=== PATIENT | female | born 1990 | race Hispanic/Latino ===

== ENCOUNTER 2017-03-31 03:31 | Inpatient (IN) | payer MEDICAID, OTHER, SELFPAY ==
[2017-03-31 04:04] VITALS: BMI 34.4
[2017-03-31] MEDS: Lactated Ringer's 1,000 ML IV SCH ×2 (04:28→06:48)
[2017-03-31] MEDS ORDERED: Ondansetron HCl/PF 4 MG/2 ML Vial IVP PRN ×2 (04:38→06:20)
[2017-03-31] MEDS ORDERED: Acetaminophen 500 MG TAB PO PRN (04:38)
[2017-03-31] MEDS ORDERED: Promethazine HCl 25 MG/ML VIAL IM PRN ×2 (04:38→06:20)
[2017-03-31] MEDS ORDERED: Fentanyl 4 mcg/Marc 0.1% Cadd 100 ML ONE (04:41)
[2017-03-31 04:59] LABS: Hematocrit 40.5 % (36.0-47.0); Mean Platelet Volume 8.5 fL (7.4-10.4); Red Blood Cell (RBC) Count 4.78 mill/uL (4.20-5.40); White Blood Cell (WBC) Count 9.9 thou/uL (4.8-10.8)
[2017-03-31] MEDS ORDERED: Fentanyl 100 MCG/2 ML VIAL ONE (05:48)
--- NOTE | 2017-03-31 06:06 | PDOC.LDHP ---
Labor and Delivery H&P Chief complaint: contractions, other (spotting after wiping) Current gestational age (weeks): 39 (4 days) Due date: 04/03/17 Dating criteria: last menstrual period Grav: 3 Para: 2 OB History Details: Prior w/ PPH followed by delivery Current complications: other (Dizziness, Headaches) Abnormal US findings: No Past Medical History: None Current medications: pre-yaritza vitamins Previous surgical history: low tranverse CS Social history: none - Physical Exam Vital signs reviewed and normal: yes General: NAD, resting Heart: RRR Lungs: nonlabored breathing Abdomen: NTTP Extremeties: no edema FHT: category 1, variability present [place] contractions every: 4 - Vaginal Exam cm dilated: 6 Effacement: 100% Station: -2 - OB Labs Blood type: O RH: positive HIV: negative RPR: negative HEPSAg: negative 1 hour GCT: negative GBS: negative Urine drug screen: negative - Assessment L&D Assessment: term patient in labor -plan for repeat - Plan Plan: admit to L&D, labor augmentation if indicated, anesthesia consult for pain management -: -Will admit as patient presents in labor. Plan for repeat . -Baby presents vertex -FHT 130 w/ category 1 strip. Contractions every 4 mins. -Will start LR@120 mls/hr -Will check routine L&D admission labs -Will continue to assess change with vaginal exams. Will monitor vital signs and treat pain PRN <Cuba Wiggins - Last Filed: 03/31/17 06:04> <Candelario Rayo - Last Filed: 03/31/17 07:28> Allergies/Adverse Reactions: Allergies Allergy/AdvReac Type Severity Reaction Status Date / Time No Known Allergies Allergy Unverified 03/31/17 03:55 Attending Addendum - Attending Addendum I personally evaluated the patient and discussed the management with Dr. Wiggins. I agree with the History, Examination, Assessment and Plan documented above with any addition or exceptions noted below. patien si good candidate and in active labor. Cat 1 FHT tracing. Epidural placed. CFM in place. I have also discussed her case with the OB hospitalist in case there is need of assistance. <Candelario Rayo - Last Filed: 03/31/17 07:28>
[2017-03-31] MEDS ORDERED: Lactated Ringer's 500 ML IV PRN (06:20)
[2017-03-31] MEDS ORDERED: Eucerin (Mineral Oil/Petrolatum,White) 30 gm Jar TOP PRN (06:20)
[2017-03-31] MEDS ORDERED: ePHEDrine/0.9% NaCl/PF SYRINGE 50 mg/10 ml SLOW IVP PRN (06:20)
[2017-03-31] MEDS ORDERED: diphenhydrAMINE 50 MG/ML VIAL IVP PRN (06:20)
[2017-03-31] MEDS ORDERED: Naloxone HCl 0.4 mg/ml Vial IVP PRN ×2 (06:20)
[2017-03-31] MEDS ORDERED: Communication Order-Pharmacy FS SCH (06:30)
[2017-03-31] MEDS ORDERED: Fentanyl 4mcg/Marcaine 0.1% Cassette 100 ML EPIDURAL SCH (06:30)
[2017-03-31] MEDS: Acetaminophen 325 MG TAB PO PRN ×3 (07:24→21:48)
--- NOTE | 2017-03-31 07:40 | PDOC.LDPN ---
Labor & Delivery Progress Note - Subjective Subjective: comfortable, other (Good pain control. Epidural in place) - Objective Vital signs reviewed and normal: yes General: NAD, resting Uterine fundus: non tender SVE: 6:00 Dilation: 7.5 Effacement: 100% Station: -2 FHT: category 1, variability present [place] contractions every: 4 - Assessment (1) Desires (vaginal after ) trial Code(s): O34.219 - MATERNAL CARE FOR UNSP TYPE SCAR FROM PREVIOUS DEL Current Visit: Yes Status: Acute (2) Intrauterine Code(s): Z34.90 - ENCNTR FOR SUPRVSN OF NORMAL , UNSP, UNSP TRIMESTER Current Visit: Yes Status: Acute Plan: continue plan of care -: Will continue to monitor vital signs FHR baseline 130. Category 1 strip -Will check SVE every 2 hours -Pt making progress on own. Will continue with labor -Epidural placed. Good pain control obtained.
--- NOTE | 2017-03-31 08:41 | PDOC.LDPN ---
Labor & Delivery Progress Note - Subjective Subjective: comfortable (Epidural inplace. POWELL resolved, dizziness resolved.) - Objective Vital signs reviewed and normal: yes General: NAD, resting, breathing through contractions Uterine fundus: non tender SVE: Per Nurse Dilation: 7.5 Effacement: 100% Station: -2 FHT: category 1 [place] contractions every: Q3min Other exam findings: Intact - Assessment (1) Desires (vaginal after ) trial Code(s): O34.219 - MATERNAL CARE FOR UNSP TYPE SCAR FROM PREVIOUS DEL Current Visit: Yes Status: Acute Comment: Continue routine L&D care. Patient comfortable with epidural. Recheck Q2hrs. GBS negative. Did well after last . Cat I strip currently after changing positions, and bolus fluid. (2) Intrauterine Code(s): Z34.90 - ENCNTR FOR SUPRVSN OF NORMAL , UNSP, UNSP TRIMESTER Current Visit: Yes Status: Acute Comment: Continue Routine L&D Care. Plan: continue plan of care
[2017-03-31] MEDS ORDERED: LR / Pitocin 40 units/1000 ml 1,000 ML ONE (09:27)
--- NOTE | 2017-03-31 09:56 | PDOC.LDPN ---
Labor & Delivery Progress Note - Objective Vital signs reviewed and normal: yes General: NAD SVE: 9/C/0 FHT: category 1 [place] contractions every: 2-3 minutes AROM: clear fluid - Assessment (1) Intrauterine Code(s): Z34.90 - ENCNTR FOR SUPRVSN OF NORMAL , UNSP, UNSP TRIMESTER Current Visit: Yes Status: Acute Comment: Progressing well. AROM clear fluid. Continue expectant management.
--- NOTE | 2017-03-31 10:35 | PDOC.LDPN ---
Labor & Delivery Progress Note - Subjective Subjective: comfortable, vaginal pressure - Objective Vital signs reviewed and normal: yes General: NAD Dilation: AL Effacement: 100% Station: 1+ FHT: category 2, early decelerations [place] contractions every: 2-3 minutes - Assessment (1) Intrauterine Code(s): Z34.90 - ENCNTR FOR SUPRVSN OF NORMAL , UNSP, UNSP TRIMESTER Current Visit: Yes Status: Acute Comment: Minimal variability currently but has had periods with moderate variability on FHTs. Overall reassuring. Position changed. Attempted pushing but unable to reduce anterior lip. Continue to labor down.
[2017-03-31] MEDS ORDERED: Misoprostol 200 MCG TAB ONE (11:09)
[2017-03-31] MEDS ORDERED: Lidocaine 1% (PF) 30 ML VIAL ONE (11:11)
[2017-03-31] MEDS ORDERED: Misoprostol 200 MCG TAB PR PRN (11:14)
[2017-03-31] MEDS ORDERED: Lidocaine 1% (PF) 30 ML VIAL SC PRN (11:14)
[2017-03-31] MEDS ORDERED: LR / Pitocin 40 units/1000 ml 1,000 ML IV PRN (11:14)
--- NOTE | 2017-03-31 11:35 | PDOC.OPDEL ---
OB Operative/Delivery Note Delivery Dr/Surgeon: Sal Pre-Delivery Diagnosis: active labor Procedure/Post Delivery Dx: vaginal delivery after CS Anesthesia: epidural - Additional Findings/Plan Placenta delivered: spontaneous Repaired Obstetrical Laceration: 2nd degree Estimated blood loss: 400 mL Compilations/Other Findings: 26 year old LAF @ 39 4/7 weeks admitted in active labor. H/o LCT C/s with successful in 2nd . After placement of epidural pt progressed to complete and delivered a viable female over an intact perineum. Apgars 9/9/ No nuchal cord. Placenta delivered via [place] mechanism, spontaneously and intact. 3 V cord. Mild uterine atony resolved with bimanual massage. 2nd degree perineal laceration repaired in usual fashion with 2-0 Vicryl. Good hemostasis. EBL 400 mL. and mother in stable condition Post delivery plan: routine recovery
[2017-03-31] MEDS ORDERED: traMADol HCl 50 MG TAB PO PRN (12:21)
[2017-03-31] MEDS ORDERED: Milk Of Magnesia 30 ML UDCUP PO PRN (12:21)
[2017-03-31] MEDS ORDERED: Bisacodyl 10 MG SUPP PR PRN (12:21)
[2017-03-31] MEDS ORDERED: Lanolin Ointment 7 GM TUBE TOP PRN (12:21)
[2017-03-31] MEDS ORDERED: Adacel (T-DAP) 0.5 ML VIAL IM ONE (12:21)
[2017-03-31] MEDS ORDERED: Benzocaine/Menthol 20-0.5% 60 ML CAN TOP PRN (12:21)
[2017-03-31] MEDS ORDERED: LR / Pitocin 40 units/1000 ml 1,000 ML IV SCH (12:21)
[2017-03-31] MEDS: Ibuprofen 800 MG TAB PO SCH ×2 (13:37→21:48)
[2017-03-31] MEDS: Ferrous Sulfate 325 MG TAB PO SCH (18:01)
[2017-03-31] MEDS: Docusate (Surfak) 240 MG CAP PO SCH (21:49)
[2017-04-01] MEDS ORDERED: ePHEDrine/0.9% NaCl/PF SYRINGE 50 mg/10 ml ONE (00:03)
[2017-04-01] MEDS ORDERED: Lidocaine 2% PF 10 ML AMP (For Epidural Use) ONE (00:03)
[2017-04-01] MEDS: Lactated Ringer's 1,000 ML IV SCH ×3 (01:28→22:06)
[2017-04-01] MEDS: Acetaminophen 325 MG TAB PO PRN (01:32)
[2017-04-01] MEDS: Ibuprofen 800 MG TAB PO SCH ×3 (05:58→22:07)
[2017-04-01] MEDS ORDERED: Fioricet 325/50/40 mg Tablet PO PRN (08:50)
[2017-04-01] MEDS: Docusate (Surfak) 240 MG CAP PO SCH ×2 (10:04→22:07)
[2017-04-01] MEDS: Prenatal Vitamin 1 TAB PO SCH (10:04)
[2017-04-01] MEDS ORDERED: HYDROcodone/Acetaminophen 5/325 mg Tablet PO PRN ×2 (10:23)
[2017-04-01] MEDS: Ferrous Sulfate 325 MG TAB PO SCH ×2 (13:23→16:02)
--- NOTE | 2017-04-01 17:42 | PDOC.PP ---
Post Progress Note Post Day #: 1 Subjective: pt c/o positional headache. not helped with po meds thus far. otherwise, able to ambulate, tolerate po. well. PO intake tolerated: yes Flatus: yes Ambulation: yes Vital Signs (12 hours) Temp Pulse Resp BP BP 04/01/17 11:40 98.5 F 60 20 115/62 04/01/17 09:05 97.9 F 67 20 106/59 L Weight Weight 85.275 kg - Physical Examination General: NAD Cardiovascular: no m/r/g, RRR Respiratory: clear to auscultation bilaterally, non-labored breathing Abdominal: + bowel sounds, lochia (minimal lochia rubra), no distention, appropriately TTP Fundus firm & at: umbilicus Extremities: negative homans (B) Skin: no rash Neurological: no gross focal deficits Psychiatric: A&Ox3, normal affect Result Diagrams: 03/31/17 04:33 Additional Labs: Post Labs Blood Type O POSITIVE 03/31/17 04:33 Hep Bs Antigen Non-Reactive S/CO (NonReactive) 03/31/17 04:33 (1) , delivered, current hospitalization Code(s): O34.21 - MATERNAL CARE FOR SCAR FROM PREVIOUS * DO NOT USE * Status: Acute Comment: PPD#1 s/p successful on 03/31 @ 1104. post- course as expected aside from post-spinal headache. undecided regarding contraception. (2) Second degree laceration of perineum, delivered, current hospitalization Code(s): O70.1 - SECOND DEGREE PERINEAL LACERATION DURING DELIVERY Status: Acute (3) Spinal headache complicating labor and delivery, condition Code(s): O74.5 - SPINAL AND EPIDUR ANESTHESIA-INDUCED HDACHE DUR LABR AND DEL Status: Acute Comment: will consult anesthesia to consider blood patch given positional nature of headache and failure of po meds for pain relief. <Martita Nye - Last Filed: 04/01/17 17:40> Vital Signs (12 hours) Temp Pulse Resp BP 04/01/17 20:21 97.8 F 72 18 133/67 Weight Weight 85.275 kg Result Diagrams: 03/31/17 04:33 Additional Labs: Post Labs Blood Type O POSITIVE 03/31/17 04:33 Hep Bs Antigen Non-Reactive S/CO (NonReactive) 03/31/17 04:33 (1) Intrauterine Code(s): Z34.90 - ENCNTR FOR SUPRVSN OF NORMAL , UNSP, UNSP TRIMESTER Status: Acute Comment: Minimal variability currently but has had periods with moderate variability on FHTs. Overall reassuring. Position changed. Attempted pushing but unable to reduce anterior lip. Continue to labor down. <Greta Huang - Last Filed: 04/02/17 07:40> Attending Addendum - Attending Addendum I personally evaluated the patient and discussed the management with Dr. Nye on 04/01/17 I agree with the History, Examination, Assessment and Plan documented above with any addition or exceptions noted below- Patient c/o POWELL. Just came back from getting blood patch. Does report headache is better than earlier. Afebrile VSS A/P: PPD#1 s/p ()- recovering well from delivery. Continue routine care. 2) Spinal POWELL- s/p blood patch- continue to monitor. <Greta Huang - Last Filed: 04/02/17 07:40>
[2017-04-02] MEDS: Lactated Ringer's 1,000 ML IV SCH ×3 (06:16→12:42)
[2017-04-02] MEDS: Ibuprofen 800 MG TAB PO SCH ×2 (06:17→14:27)
[2017-04-02 07:53] VITALS: BP 115/61; TEMP 98.1
[2017-04-02] MEDS: Ferrous Sulfate 325 MG TAB PO SCH (08:25)
[2017-04-02] MEDS: Prenatal Vitamin 1 TAB PO SCH (08:28)
[2017-04-02] MEDS: Docusate (Surfak) 240 MG CAP PO SCH (08:28)
--- NOTE | 2017-04-02 08:39 | PDOC.PP ---
Post Progress Note Post Day #: 2 Subjective: Feeling well this morning. Headache resolved after blood patch per anesthesia. PO intake tolerated: yes Flatus: yes Ambulation: yes Vital Signs (12 hours) Temp Pulse Resp BP 04/02/17 07:52 98.1 F 68 20 115/61 Weight Weight 85.275 kg - Physical Examination General: NAD Cardiovascular: no m/r/g, RRR Respiratory: clear to auscultation bilaterally, non-labored breathing Abdominal: + bowel sounds, lochia (minimal rubra), no distention, appropriately TTP Fundus firm & at: umbilicus Extremities: negative homans (B) Skin: no rash Neurological: no gross focal deficits Psychiatric: A&Ox3, normal affect Result Diagrams: 03/31/17 04:33 Additional Labs: Post Labs Blood Type O POSITIVE 03/31/17 04:33 Hep Bs Antigen Non-Reactive S/CO (NonReactive) 03/31/17 04:33 (1) , delivered, current hospitalization Code(s): O34.21 - MATERNAL CARE FOR SCAR FROM PREVIOUS * DO NOT USE * Status: Acute Comment: ->3 PPD#2 s/p successful on 03/31 @ 1104. post- course as expected, undecided regarding contraception. Desiring to go home today with f/u outpt with Dr. Huang. post-spinal headache resolved s/p blood patch (2) Second degree laceration of perineum, delivered, current hospitalization Code(s): O70.1 - SECOND DEGREE PERINEAL LACERATION DURING DELIVERY Status: Acute (3) Spinal headache complicating labor and delivery, condition Code(s): O74.5 - SPINAL AND EPIDUR ANESTHESIA-INDUCED HDACHE DUR LABR AND DEL Status: Resolved Comment: resolved s/p blood patch per anesthesia. <Martita Nye - Last Filed: 04/02/17 08:38> Weight Weight 85.275 kg Result Diagrams: 03/31/17 04:33 Additional Labs: Post Labs Blood Type O POSITIVE 03/31/17 04:33 Hep Bs Antigen Non-Reactive S/CO (NonReactive) 03/31/17 04:33 (1) Intrauterine Code(s): Z34.90 - ENCNTR FOR SUPRVSN OF NORMAL , UNSP, UNSP TRIMESTER Status: Acute Comment: Minimal variability currently but has had periods with moderate variability on FHTs. Overall reassuring. Position changed. Attempted pushing but unable to reduce anterior lip. Continue to labor down. <Greta Huang - Last Filed: 04/03/17 11:55> Attending Addendum - Attending Addendum I personally evaluated the patient and discussed the management with Dr. Nye I agree with the History, Examination, Assessment and Plan documented above with any addition or exceptions noted below- Patient feeling better. POWELL resolved. Afebrile VSS A/p: 1) - PPD #2 - plan to d/c home today. F/u in 2 weeks at [facility]. 2) Spinal POWELL resolved. <Greta Huang - Last Filed: 04/03/17 11:55>
== END 2017-04-02 15:00 | disposition home or self-care (01) | DRG 775 ==
LOC: L&D/OP 03:31 → L&D 04:39 → 3SW 14:31
PROVIDERS: ADMIT Family Medicine; ATTEND Family Medicine
PROC: 10E0XZZ Delivery of Products of Conception, External Approach (ICD-10-PCS; principal; 2017-03-31)
PROC: 0KQM0ZZ Repair Perineum Muscle, Open Approach (ICD-10-PCS; 2017-03-31)
DX: O34.211 Maternal care for low transverse scar from previous cesarean delivery (principal); N85.8 Other specified noninflammatory disorders of uterus; Z37.0 Single live birth; O70.1 Second degree perineal laceration during delivery; O89.4 Spinal and epidural anesthesia-induced headache during the puerperium; Z3A.39 39 weeks gestation of pregnancy
CPT/HCPCS: 85027; 86780; 86850; 86900; 86901; 87340; J2001; J3010

== ENCOUNTER 2022-01-04 07:39 | Emergency (ER) | payer BC, MEDICAID, SELFPAY ==
[2022-01-04 08:30] LABS: #Basophils 0.1 thou/uL (0.0-0.2); #Eosinphils 0.2 thou/uL (0.0-0.7); #Lymphocytes 2.1 thou/uL (1.20-3.40); #Monocytes 0.5 thou/uL (0.11-0.59); #Neutrophils 5.6 thou/uL (1.40-6.50); %Basophils 0.9 % (0.0-1.0); %Eosinophils 2.3 % (0.0-10.0); %Lymphocytes 24.9 % (21.0-51.0); %Monocytes 5.6 % (0.0-10.0); %Neutrophils 66.4 % (42.0-75.0); Hemoglobin 14.3 g/dL (12.0-16.0); Mean Corpuscular HGB CONC 33.5 g/dL (32.0-36.0); Mean Corpuscular Hemoglobin 30.3 pg (27.0-31.0); Mean Corpuscular Volume 90.5 fL (78.0-98.0); Mean Platelet Volume 8.7 fL (7.4-10.4); Platelet Count 228 thou/uL (130-400); RBC Distribution Width 13.2 % (11.5-14.5); Red Blood Cell (RBC) Count 4.73 mill/uL (4.20-5.40); White Blood Cell (WBC) Count 8.4 thou/uL (4.8-10.8)
[2022-01-04 08:52] LABS: ALT (SGPT) 21 U/L (8-55); AST (SGOT) 19 U/L (5-34); Alkaline Phosphatase 51 U/L (40-110); Anion Gap 15 mmol/L (10-20); BUN (Urea Nitrogen) 6 mg/dL (7.0-18.7); Bilirubin, Total 0.4 mg/dL (0.2-1.2); Calc. Creatinine Clearance 0 mL/min (70-130); Calcium 9.6 mg/dL (7.8-10.44); Carbon Dioxide 24 mmol/L (22-29); Chloride 102 mmol/L (98-107); Estimated GFR 124; Globulin 3.6 g/dL (2.4-3.5); Glucose 91 mg/dL (70-105); Potassium 3.8 mmol/L (3.5-5.1); Protein, Total 7.6 g/dL (6.0-8.3); Sodium 137 mmol/L (136-145)
== END 2022-01-04 11:09 | disposition home or self-care (01) ==
LOC: ERS 07:39
DX: O20.0 Threatened abortion (principal); Z3A.09 9 weeks gestation of pregnancy
CPT/HCPCS: 36415; 76856; 80053; 84702; 85025; 86900; 86901; 93976